=== PATIENT | female | born 1965 | race Caucasian/White ===

== ENCOUNTER 2016-05-07 19:16 | Emergency (ER) | payer BC, OTHER ==
[~2016-05-07] VITALS: Ht 167.6 cm; Wt 92.0 kg
[~2016-05-07 19:16] MED LIST: PRENTAB26 PO
[2016-05-07 19:21] VITALS: TEMP 36.4; Ht 167.6 cm; Wt 92.0 kg
[2016-05-07 20:20] LABS: BASO % 0.5 %; BASO ABS # 0.03 K/uL (0-0.2); COMPLETE YES; EOS % 1.7 %; HEMATOCRIT 34.7 % (37-47); IG% 0.3 %; LYMPH ABS # 2.69 K/uL (1.2-3.4); MEAN CELL VOLUME 89.9 fL (80-100); MEAN CORPUSCULAR HEMOGLOBIN 30.1 pg (25-34); MEAN CORPUSCULAR HGB CONC 33.4 g/dl (32-36); MONO % 7.5 %; PLATELET COUNT 208 K/uL (130-400); RED BLOOD COUNT 3.86 M/uL (4.2-5.4)
[2016-05-07 20:35] LABS: INR 0.9 (0.9-1.1); PARTIAL THROMBOPLASTIN RATIO 0.9; PROTHROMBIN TIME (PATIENT) 9.9 SECONDS (9.0-12.0)
[2016-05-07 20:40] LABS: BUN/CREATININE RATIO 12.2 (10-20); CALCIUM 9.5 mg/dl (8.5-10.1); CREATININE 0.81 mg/dl (0.60-1.20); POTASSIUM 3.6 mmol/L (3.5-5.1)
[2016-05-07 21:00] LABS: URINE APPEARANCE CLEAR (CLEAR); URINE BILIRUBIN NEG (NEG); URINE NITRITE NEG (NEG); URINE PH 5.5 (4.5-7.5); UROBILINOGEN NEG (NEG); ZZUR CULT IF INDIC CLEAN CATCH NO
[2016-05-07 21:02] LABS: MANUAL MICROSCOPIC REQUIRED? YES; REVIEW REQ? NO; URINE COLOR YELLOW
[2016-05-07 21:34] LABS: URINE BACTERIA NEG (NEG)
--- NOTE | 2016-05-07 22:17 | DIAGNOSTIC IMAGING REPORT ---
EXAMINATION: PELVIC ULTRASOUND CLINICAL HISTORY: vag bleeding/cramping PAIN COMPARISON STUDY: None FINDINGS: The uterus measured 11 cm. The endometrial stripe measured thickened at 2 cm. Differential considerations include endometrial hyperplasia versus neoplasia. The right ovary measured 4 cm including a 3.5 cm septated cyst. The left ovary measured 2.47. There is no ultrasonographic evidence of ovarian torsion. It should be noted that ovarian torsion can be present with normal Doppler ultrasonographic findings. There was no evidence of pathologic free pelvic fluid. IMPRESSION: 1. Endometrial thickening at 2 cm. 2. Differential considerations include endometrial neoplasm versus hyperplasia 3. Septated simple cyst right ovary measuring 3.5 cm Electronically signed by: Phil Villar M.D. 05/07/2016 10:16 PM Dictated Date/Time: 05/07/2016 10:14 PM
--- NOTE | 2016-05-07 23:25 | EMERGENCY ROOM VISIT NOTE ---
History First contact with patient: 19:32 Chief Complaint: ED VAG BLEEDING Stated Complaint: HEAVY MENSTRUAL PAIN History of Present Illness The patient is a 50 year old female who presents to the Emergency Department by private vehicle for evaluation of vaginal bleeding. She reports that she has had vaginal spotting for the past 3 weeks. She reports over the past 24 hours she's had heavy vaginal bleeding with clots. She reports some cramping in the abdomen which is new as well. She reports no fevers or chills. the patient had been on oral contraception for several years until approximately 3 months ago when she was taken off the medication second 8 hypertension. She's had no issues until 3 weeks ago. The patient rates her current discomfort as 8/10. She denies any fevers, chills, headaches, dizziness, lightheadedness, chest pain , palpitations, short of breath, nausea, vomiting, hematuria, or dysuria. The patient reports a prior history of section 3 as well as D&C 1. Review of Systems A complete 10-point Review of Systems was discussed with the patient, with pertinent positives and negatives listed in the History of Present Illness. All remaining Review of Systems questions can be considered negative unless otherwise specified. Social History Smoking Status: Never Smoker Smokeless Tobacco Use: No Drug Use: none Marital Status: Housing Status: lives with family Current/Historical Medications Scheduled Multivit/Min/Iron/Fol Ac/Pren ( Vitamin), 1 TAB PO DAILY Allergies Coded Allergies: Codeine (Verified Allergy, Unknown, 04/27/09) Aspirin (Verified Adverse Reaction, Mild, GI UPSET, 04/27/09) Physical Exam Vital Signs Date Time Temp Pulse Resp B/P Pulse Ox O2 Delivery O2 Flow Rate FiO2 05/07/16 23:40 84 18 131/63 98 05/07/16 22:14 82 18 135/64 96 Room Air 05/07/16 19:21 36.4 91 20 136/75 96 Pain Rating (0-10): 8 Physical Exam VITAL SIGNS - Vital signs and nursing notes were reviewed. GENERAL - 50-year-old female appearing her stated age who is in no acute distress. Communicates well with provider and answers questions appropriately. LUNGS - Chest wall symmetric without accessory muscle use, intercostals retractions, or central cyanosis. Normal vesicular breath sounds CTA B/L. No wheezes, rales, or rhonchi appreciated. CARDIAC - RRR with S1/S2. No murmur, rubs, or gallops appreciated. ABDOMEN - Abdominal contour obese and without pulsations or visible masses. BS normoactive all four quadrants. No tenderness to palpation appreciated throughout. No guarding. No Rebound Tenderness. Negative Rovsing's. Negative Mohr's. No palpable masses, hepatosplenomegaly, or ascites noted. PSYCH - A&Ox3 and cooperates fully with examiner. Pt is very pleasant and interacts well with examiner. Medical Decision & Procedures ER Provider Diagnostic Interpretation: Radiological imaging and reports were reviewed by myself. Radiologist's Interpretation as follows: EXAMINATION: PELVIC ULTRASOUND CLINICAL HISTORY: vag bleeding/cramping PAIN COMPARISON STUDY: None FINDINGS: The uterus measured 11 cm. The endometrial stripe measured thickened at 2 cm. Differential considerations include endometrial hyperplasia versus neoplasia. The right ovary measured 4 cm including a 3.5 cm septated cyst. The left ovary measured 2.47. There is no ultrasonographic evidence of ovarian torsion. It should be noted that ovarian torsion can be present with normal Doppler ultrasonographic findings. There was no evidence of pathologic free pelvic fluid. IMPRESSION: 1. Endometrial thickening at 2 cm. 2. Differential considerations include endometrial neoplasm versus hyperplasia 3. Septated simple cyst right ovary measuring 3.5 cm Laboratory Results 05/07/16 20:10 Red Blood Count 3.86, Mean Corpuscular Volume 89.9, Mean Corpuscular Hemoglobin 30.1, Mean Corpuscular Hemoglobin Concent 33.4, Mean Platelet Volume 9.0, Neutrophils (%) (Auto) 48.0, Lymphocytes (%) (Auto) 42.0, Monocytes (%) (Auto) 7.5, Eosinophils (%) (Auto) 1.7, Basophils (%) (Auto) 0.5, Neutrophils # (Auto) 3.07, Lymphocytes # (Auto) 2.69, Monocytes # (Auto) 0.48, Eosinophils # (Auto) 0.11, Basophils # (Auto) 0.03 05/07/16 20:10 Test 05/07/16 20:10 05/07/16 20:24 05/07/16 20:42 White Blood Count 6.40 K/uL (4.8-10.8) Red Blood Count 3.86 M/uL (4.2-5.4) Hemoglobin 11.6 g/dL (12.0-16.0) Hematocrit 34.7 % (37-47) Mean Corpuscular Volume 89.9 fL (80-100) Mean Corpuscular Hemoglobin 30.1 pg (25-34) Mean Corpuscular Hemoglobin Concent 33.4 g/dl (32-36) Platelet Count 208 K/uL (130-400) Mean Platelet Volume 9.0 fL (7.4-10.4) Neutrophils (%) (Auto) 48.0 % Lymphocytes (%) (Auto) 42.0 % Monocytes (%) (Auto) 7.5 % Eosinophils (%) (Auto) 1.7 % Basophils (%) (Auto) 0.5 % Neutrophils # (Auto) 3.07 K/uL (1.4-6.5) Lymphocytes # (Auto) 2.69 K/uL (1.2-3.4) Monocytes # (Auto) 0.48 K/uL (0.11-0.59) Eosinophils # (Auto) 0.11 K/uL (0-0.5) Basophils # (Auto) 0.03 K/uL (0-0.2) RDW Standard Deviation 44.9 fL (36.4-46.3) RDW Coefficient of Variation 13.8 % (11.5-14.5) Immature Granulocyte % (Auto) 0.3 % Immature Granulocyte # (Auto) 0.02 K/uL (0.00-0.02) Prothrombin Time 9.9 SECONDS (9.0-12.0) Prothromb Time International Ratio 0.9 (0.9-1.1) Activated Partial Thromboplast Time 22.2 SECONDS (21.0-31.0) Partial Thromboplastin Ratio 0.9 Anion Gap 8.0 mmol/L (3-11) Est Creatinine Clear Calc Drug Dose 97.0 ml/min Estimated GFR () 99.5 Estimated GFR (Non- 85.9 BUN/Creatinine Ratio 12.2 (10-20) Calcium Level 9.5 mg/dl (8.5-10.1) Magnesium Level 2.0 mg/dl (1.8-2.4) Total Bilirubin 0.3 mg/dl (0.2-1) Aspartate Amino Transf (AST/SGOT) 21 U/L (15-37) Alanine Aminotransferase (ALT/SGPT) 32 U/L (12-78) Alkaline Phosphatase 58 U/L (45-117) Total Protein 7.9 gm/dl (6.4-8.2) Albumin 3.9 gm/dl (3.4-5.0) Globulin 4.0 gm/dl (2.5-4.0) Albumin/Globulin Ratio 1.0 (0.9-2) Lipase 222 U/L (73-393) Human Chorionic Gonadotropin, Quant < 1 mIU/mL Urine Color YELLOW Urine Appearance CLEAR (CLEAR) Urine pH 5.5 (4.5-7.5) Urine Specific [place] 1.000 (1.000-1.030) Urine Protein NEG (NEG) Urine Glucose (UA) NEG (NEG) Urine Ketones NEG (NEG) Urine Occult Blood 3+ (NEG) Urine Nitrite NEG (NEG) Urine Bilirubin NEG (NEG) Urine Urobilinogen NEG (NEG) Urine Leukocyte Esterase NEG (NEG) Urine WBC (Auto) /hpf (0-5) Urine RBC (Auto) /hpf (0-4) Urine Hyaline Casts (Auto) /lpf (0-5) Urine Epithelial Cells (Auto) /lpf (0-5) Urine Bacteria (Auto) (NEG) Urine RBC 5-10 /hpf (0-4) Urine WBC 1-5 /hpf (0-5) Urine Epithelial Cells >30 /lpf (0-5) Urine Bacteria NEG (NEG) Urine Test NEG (NEG) ED Course Patient was seen and evaluated by myself. Labs were drawn, saline lock in place. Pelvic ultrasound was obtained. Laboratory results demonstrate no acute leukocytosis, significant anemia, or bandemia. The patient had no significant electrolyte abnormalities. Urinalysis does not suggest infection. was negative. Ultrasound results above. I did discuss the case with Dr. Dylan Sanchez SENIOR FINANCIAL ACCOUNTANT. He suggests close follow-up in office tomorrow. Patient was educated on worrisome symptoms for return visit to the emergency department. Patient discharged home in good condition. Medical Decision Given the patient's presentation and stated complaints, I did elect to perform the above-mentioned workup. The patient presents today with vaginal bleeding which is increased over the last 24 hours. She is not tachycardic. She is not hypoxic. She has no significant electrolyte abnormality or anemia. Her ultrasound concerning for uterine thickening. Because of this, I did discuss the case with SENIOR FINANCIAL ACCOUNTANT. She'll follow-up in office tomorrow. She will return for change or worsening symptoms. Patient discharged home afebrile and in good condition. In the evaluation and treatment of this patient, the following differential diagnoses were considered: Neoplasm, , metabolic, dyspareunia, dysfunctional uterine bleeding, amongst others. Impression Primary Impression: Vaginal bleeding Departure Information Dispostion Home / Self-Care Condition GOOD Referrals No Doctor, Assigned (PCP) Isaac Richardson M.D. Patient Instructions My [facility] Additional Instructions You've been seen in the emergency department today for vaginal bleeding. Please contact the SENIOR FINANCIAL ACCOUNTANT provider tomorrow to set up an appointment in follow- up as soon as possible. Return to the emergency department for any changing or worsening symptoms.
[2016-05-07 23:40] VITALS: BP 131/63; PULSE 84; O2SAT 98
== END 2016-05-07 23:41 | disposition home or self-care (01) ==
LOC: C.EDB 19:18 → C.EDA 23:41
DX: N93.9 Abnormal uterine and vaginal bleeding, unspecified (principal); R10.9 Unspecified abdominal pain; E66.9 Obesity, unspecified; Z88.5 Allergy status to narcotic agent; Z88.6 Allergy status to analgesic agent

== ENCOUNTER 2017-10-30 22:48 | Emergency (ER) | payer OTHER ==
[~2017-10-30] VITALS: Ht 167.6 cm; Wt 89.6 kg
[2017-10-30 22:52] VITALS: TEMP 36.6; Ht 167.6 cm; Wt 89.6 kg
[2017-10-30] MEDS ORDERED: IBUPROFEN 600 MG TAB PO STA (23:05)
[2017-10-30] MEDS ORDERED: LISI-729 PO (23:12)
[2017-10-30] MEDS ORDERED: GLC/500 PO (23:12)
[2017-10-30] MEDS ORDERED: CALC-452 PO (23:12)
[2017-10-30] MEDS ORDERED: EFF75 PO (23:12)
[2017-10-30] MEDS ORDERED: OXYCODONE/ACETAMINOPHEN 5-325 TAB PO ONE (23:15)
[2017-10-30] MEDS ORDERED: OXYC-57 PO (23:22)
[2017-10-31 00:02] VITALS: BP 135/75; PULSE 91; O2SAT 97
--- NOTE | 2017-10-31 01:39 | EMERGENCY ROOM VISIT NOTE ---
History Report prepared by Ian: Tracie Crawford Under the Supervision of: Dr. Ryan Gallegos M.D. First contact with patient: 22:58 Chief Complaint: ANKLE PAIN Stated Complaint: ANLKLE SWOLLEN RIGHT SIDE History of Present Illness The patient is a 51 year old female who presents to the Emergency Room with complaints of worsening ankle pain that onset a week ago. The patient notes that she "went over on her ankle" that she has been walking on her foot for the past week. She states that the pain extends around the front and back of her ankle. She notes that putting pressure on her foot exacerbates the pain. She states that she took Ibuprofen for the pain yesterday and it helped to alleviate her pain. Source of History: patient Onset: A week Position: ankle (right) Timing: worsening Modifying Factors (Worsening): other (putting pressure on the bhavik) Modifying Factors (Relieving): ibuprofen Review of Systems See HPI for pertinent positives & negatives. A total of 10 systems reviewed and were otherwise negative. Social History Smoking Status: Never Smoker Drug Use: none Marital Status: Housing Status: lives with family Current/Historical Medications Scheduled Calcium Carbonate-Cholecalcife (Calcium 600 + D 600-200 mg-Unit), 1 TAB PO DAILY Lisinopril (Zestril), 5 MG PO DAILY Metformin Hcl (Glucophage), 500 MG PO BID Venlafaxine Hcl (Effexor), 75 MG PO DAILY Scheduled PRN Oxycodone/Acetaminophen 5MG/325MG (Percocet 5MG/325MG), 1 TAB PO Q4H PRN for Pain Allergies Coded Allergies: Codeine (Verified Allergy, Unknown, 10/30/17) Aspirin (Verified Adverse Reaction, Mild, GI UPSET, 10/30/17) Physical Exam Vital Signs Date Time Temp Pulse Resp B/P (MAP) Pulse Ox O2 Delivery O2 Flow Rate FiO2 10/31/17 00:02 91 18 135/75 97 10/30/17 22:52 36.6 82 18 150/87 100 Room Air Physical Exam GENERAL: Awake, alert, well-appearing, in no acute distress HENT: Normocephalic, atraumatic. Oropharynx unremarkable. EYES: Normal conjunctiva. Sclera non-icteric. NECK: Supple. No nuchal rigidity. FROM. No JVD. RESPIRATORY: Clear to auscultation. CARDIAC: Regular rate, normal rhythm. Extremities warm and well perfused. Pulses equal. ABDOMEN: Soft, non-distended. No tenderness to palpation. No rebound or guarding. No masses. RECTAL: Deferred. MUSCULOSKELETAL: Chest examination reveals no tenderness. The back is symmetrical on inspection without obvious abnormality. There is no CVA tenderness to palpation. No joint edema. LOWER EXTREMITIES: Right ankle swollen. No deformity. Good range of motion in hip and knee. NEURO: Normal sensorium. No sensory or motor deficits noted. SKIN: No rash or jaundice noted. Medical Decision & Procedures ER Provider Diagnostic Interpretation: 3 View of the ankle was interpreted by me. Shows no evidence of fracture, dislocation, or subluxation. Medications Administered Medications (Trade) Dose Ordered Sig/Marian Route Start Time Stop Time Status Last Admin Dose Admin Ibuprofen (Motrin Tab) 600 mg NOW STAT PO 10/30/17 23:05 10/30/17 23:08 DC 10/30/17 23:15 600 MG ED Course 2258: Past medical records reviewed. The patient was evaluated in room B4B. A complete history and physical examination was performed. 2321: Upon reexamination the patient is resting comfortably. I discussed results and treatment plan with the patient. She verbalizes agreement and understanding. The patient is ready for discharge. Medical Decision Differential diagnosis: Etiologies such as fracture, dislocation, intra-abdominal, pneumothorax, intrathoracic , intracranial, neurologic, as well as other traumatic pathologies were entertained. This is a 51-year-old female who presents emergency department complaining of right ankle pain after rolling in approximately 1 week ago. The patient has continued to walk on the ankle and is now complaining of swelling. For this reason x-rays were obtained which did not show any evidence of fracture dislocation or subluxation. The patient will be placed on crutches as well as an ankle splint. I stressed the need for follow-up with orthopedics especially if the patient is continuing to have pain. Patient was in agreement with the treatment plan. Medication Reconcilliation Current Medication List: was personally reviewed by me Blood Pressure Screening Patient's blood pressure: Normal blood pressure Impression Primary Impression: Right ankle pain Scribe Attestation The scribe's documentation has been prepared under my direction and personally reviewed by me in its entirety. I confirm that the note above accurately reflects all work, treatment, procedures, and medical decision making performed by me. Departure Information Dispostion Home / Self-Care Prescriptions Oxycodone/Acetaminophen 5MG/325MG (PERCOCET 5MG/325MG) Tab 1 TAB PO Q4H Y for Pain, #14 TAB Prov: Ryan Gallegos MD 10/30/17 Referrals No Doctor, Assigned (PCP) Forms HOME CARE DOCUMENTATION FORM, IMPORTANT VISIT INFORMATION Patient Instructions My [facility] Additional Instructions You received narcotic or benzodiazepene medication while in the emergency room today. This is an addictive medication that may cause drowziness as well as constipation. Do not drive, operate heavy machinery, or drink alcohol under the influence of this medication. Take 600 mg Ibuprofen every 6 hours Take Percocet for breakthrough pain Radiographs and CTs will be reread by a radiologist in the morning. You have been examined and treated today on an emergency basis only. This is not a substitute for, or an effort to provide, complete comprehensive medical care. It is impossible to recognize and treat all injuries or illnesses in a single emergency department visit. It is therefore important that you follow up closely with your PCP. Call as soon as possible for an appointment. Thank you for your time and consideration. I look forward to speaking with you again soon. Please don't hesitate to call us if you have any questions. Problem Qualifiers Primary Impression: Right ankle pain Chronicity: acute Qualified Codes: M25.571 - Pain in right ankle and joints of right foot
--- NOTE | 2017-10-31 08:56 | DIAGNOSTIC IMAGING REPORT ---
RIGHT ANKLE 3 VIEWS CLINICAL HISTORY: Right ankle pain and swelling. FINDINGS: 3 views of the right ankle are obtained. No prior studies are available for comparison at the time of dictation. The skeletal structures are well mineralized for age. There is no radiographic evidence of right ankle fracture. The ankle mortise is intact. Dorsal and plantar calcaneal enthesophytes are observed. There is a joint effusion, and soft tissue edema is present around the ankle. Small phleboliths are noted in the calf. IMPRESSION: Soft tissue swelling and joint effusion. No right ankle fracture is identified. Electronically signed by: Alhaji Inman M.D. 10/31/2017 8:55 AM Dictated Date/Time: 10/31/2017 8:54 AM
== END 2017-10-31 00:02 | disposition home or self-care (01) ==
LOC: C.EDB 22:50
DX: M25.571 Pain in right ankle and joints of right foot (principal); X58.XXXA Exposure to other specified factors, initial encounter; Z88.6 Allergy status to analgesic agent